=== PATIENT | male | born 1965 | race African-American/Black ===

== ENCOUNTER 2016-10-07 16:56 | Emergency (ER) | payer SELFPAY ==
[~2016-10-07] VITALS: Ht 167.6 cm; Wt 83.0 kg
[2016-10-07 16:59] VITALS: BP 160/80
== END 2016-10-07 22:25 | disposition left against medical advice (07) ==
LOC: ER 22:21
DX: R51 Headache (principal); Z53.21 Procedure and treatment not carried out due to patient leaving prior to being seen by health care provider

== ENCOUNTER 2016-10-09 13:47 | Emergency (ER) | payer SELFPAY ==
[~2016-10-09] VITALS: Ht 167.6 cm; Wt 82.0 kg
[2016-10-09 13:57] VITALS: BP 142/95
== END 2016-10-09 14:55 | disposition home or self-care (01) ==
LOC: ER 13:48
DX: R21 Rash and other nonspecific skin eruption (principal); I10 Essential (primary) hypertension; M19.90 Unspecified osteoarthritis, unspecified site; F12.10 Cannabis abuse, uncomplicated
CPT/HCPCS: 99282

== ENCOUNTER 2016-10-19 16:24 | Emergency (ER) | payer SELFPAY ==
[~2016-10-19] VITALS: Ht 167.6 cm; Wt 82.0 kg
[2016-10-19] MEDS ORDERED: ACETAMINOPHEN WITH CODEINE 300/30MG TABLET PO STA (16:42)
[2016-10-19 17:06] LABS: BASOPHILS % 0.9 % (0.0-2.0); EOSINOPHILS % 3.7 % (0.0-5.0); HEMATOCRIT. 39.7 % (42.0-52.0); HEMOGLOBIN. 13.6 g/dL (14.0-18.0); LYMPHOCYTES % 37.9 % (20.0-50.0); MEAN CORPUSCULAR HEMOGLOBIN 30.8 pg (28.0-32.0); MEAN CORPUSCULAR VOLUME 89.6 fL (80.0-94.0); MEAN PLATELET VOLUME 8.4 fl (7.4-10.4); MONOCYTES % 11.2 % (2.0-8.0); NEUTROPHILS % 46.3 % (40.0-76.0); PLATELET 249 x1000/uL (130-400); RED BLOOD CELL COUNT 4.43 mill/uL (4.7-6.1); RED CELL DISTRIBUTION WIDTH 14.1 % (11.6-14.6)
[2016-10-19 17:09] LABS: CHLORIDE 107 mEq/L (98-107)
[2016-10-19 17:10] LABS: PROTHROMBIN TIME 10.1 sec
[2016-10-19 17:13] LABS: CARBON DIOXIDE 26 mEq/L (21-32)
[2016-10-19 19:01] VITALS: BP 144/92
== END 2016-10-19 19:04 | disposition home or self-care (01) ==
LOC: ER 18:35
DX: I10 Essential (primary) hypertension (principal); R51 Headache; M19.90 Unspecified osteoarthritis, unspecified site
CPT/HCPCS: 36415; 70450; 80053; 85025; 85610; 93005; 99285; Z7610

== ENCOUNTER 2017-07-19 10:07 | Emergency (ER) | payer SELFPAY ==
[~2017-07-19] VITALS: Ht 167.6 cm; Wt 81.0 kg
[2017-07-19 10:27] VITALS: BP 167/100
[2017-07-19] MEDS ORDERED: TETANUS, DIPHTHERIA, PERTUSSIS VAC/PF 0.5ML (>7YR OLD) IM ONE (12:00)
== END 2017-07-19 12:50 | disposition home or self-care (01) ==
LOC: ER 10:07
DX: L03.114 Cellulitis of left upper limb (principal); S69.92XA Unspecified injury of left wrist, hand and finger(s), initial encounter; X58.XXXA Exposure to other specified factors, initial encounter; Z23 Encounter for immunization; Y93.89 Activity, other specified; Y92.69 Other specified industrial and construction area as the place of occurrence of the external cause; Y99.0 Civilian activity done for income or pay; I10 Essential (primary) hypertension; F12.90 Cannabis use, unspecified, uncomplicated
CPT/HCPCS: 73130; 90471; 90715; 99283

== ENCOUNTER 2017-11-23 16:40 | Emergency (ER) | payer SELFPAY ==
[~2017-11-23] VITALS: Ht 167.6 cm; Wt 82.0 kg
[2017-11-23 17:27] VITALS: BP 169/116
[2017-11-23] MEDS ORDERED: SODIUM CHLORIDE 0.9% 1,000 ML IV ONE (17:52)
[2017-11-23 18:04] LABS: BASOPHILS % 0.8 % (0.0-2.0); EOSINOPHILS % 1.5 % (0.0-5.0); HEMATOCRIT. 42.7 % (42.0-52.0); HEMOGLOBIN. 14.4 g/dL (14.0-18.0); LYMPHOCYTES % 34.1 % (20.0-50.0); MEAN CORPUSCULAR HEMOGLOBIN 30.9 pg (28.0-32.0); MEAN CORPUSCULAR VOLUME 91.7 fL (80.0-94.0); MONOCYTES % 9.4 % (2.0-8.0); NEUTROPHILS % 54.2 % (40.0-76.0); PLATELET 277 x1000/uL (130-400); RED BLOOD CELL COUNT 4.66 mill/uL (4.7-6.1); RED CELL DISTRIBUTION WIDTH 13.4 % (11.6-14.6)
[2017-11-23 18:10] LABS: CHLORIDE 105 mEq/L (98-107)
[2017-11-23 18:11] LABS: PROTHROMBIN TIME 10.5 sec (9.4-11.6)
[2017-11-23] MEDS ORDERED: POTASSIUM CHLORIDE 20MEQ TABLET SR PO NR (20:00)
== END 2017-11-23 21:25 | disposition home or self-care (01) ==
LOC: ER 16:40
DX: T22.212A Burn of second degree of left forearm, initial encounter (principal); T31.0 Burns involving less than 10% of body surface; R25.2 Cramp and spasm; R00.2 Palpitations; I44.0 Atrioventricular block, first degree; R03.0 Elevated blood-pressure reading, without diagnosis of hypertension; E87.6 Hypokalemia; F12.90 Cannabis use, unspecified, uncomplicated; X16.XXXA Contact with hot heating appliances, radiators and pipes, initial encounter; Y93.89 Activity, other specified; Y92.89 Other specified places as the place of occurrence of the external cause
CPT/HCPCS: 36415; 71045; 80053; 83880; 84484; 85025; 85610; 93005; 99285; J7030

== ENCOUNTER 2018-11-23 15:29 | Emergency (ER) | payer MEDICAID ==
[~2018-11-23] VITALS: Ht 167.6 cm; Wt 90.0 kg
[2018-11-23 18:04] LABS: EOSINOPHILS % 4.2 % (0.0-5.0); HEMATOCRIT. 43.5 % (42.0-52.0); HEMOGLOBIN. 14.9 g/dL (14.0-18.0); LYMPHOCYTES % 42.5 % (20.0-50.0); MEAN CORPUSCULAR HEMOGLOBIN 31.5 pg (28.0-32.0); MEAN CORPUSCULAR VOLUME 92.1 fL (80.0-94.0); MEAN PLATELET VOLUME 9.3 fl (7.4-10.4); MONOCYTES % 9.6 % (2.0-8.0); NEUTROPHILS % 42.7 % (40.0-76.0); PLATELET 270 x1000/uL (130-400); RED BLOOD CELL COUNT 4.72 mill/uL (4.7-6.1); RED CELL DISTRIBUTION WIDTH 13.3 % (11.6-14.6)
[2018-11-23 18:10] LABS: CHLORIDE 110 mEq/L (98-107)
[2018-11-23] MEDS ORDERED: AMLODIPINE 2.5MG TABLET PO ONE (20:00)
[2018-11-23 20:30] VITALS: BP 168/120
== END 2018-11-23 20:34 | disposition home or self-care (01) ==
LOC: ER 15:29
DX: R07.89 Other chest pain (principal); I16.1 Hypertensive emergency; I10 Essential (primary) hypertension; F12.10 Cannabis abuse, uncomplicated
CPT/HCPCS: 36415; 71045; 83880; 84484; 93005; 99284

== ENCOUNTER 2019-02-07 04:56 | Inpatient (IN) | payer SELFPAY ==
[~2019-02-07] VITALS: Ht 167.6 cm; Wt 81.6 kg
[2019-02-07] MEDS ORDERED: ALBUTEROL (0.083%) 2.5MG/3ML NEB HHN ONE (05:45)
[2019-02-07 06:45] LABS: BASOPHILS % 0.9 % (0.0-2.0); EOSINOPHILS % 3.7 % (0.0-5.0); LYMPHOCYTES % 22.5 % (20.0-50.0); MEAN CORPUSCULAR HEMOGLOBIN 31.6 pg (28.0-32.0); MEAN CORPUSCULAR VOLUME 92.8 fL (80.0-94.0); MEAN PLATELET VOLUME 9.6 fl (7.4-10.4); MONOCYTES % 9.7 % (2.0-8.0); NEUTROPHILS % 63.2 % (40.0-76.0); PLATELET 254 x1000/uL (130-400); RED BLOOD CELL COUNT 5.07 mill/uL (4.7-6.1); RED CELL DISTRIBUTION WIDTH 13.4 % (11.6-14.6)
[2019-02-07 07:21] LABS: CHLORIDE 108 mEq/L (98-107)
[2019-02-07] MEDS ORDERED: FUROSEMIDE 40MG/4ML VIAL IVP ONE (08:15)
[2019-02-07] MEDS ORDERED: ENALAPRIL 2.5MG/2ML VIAL 2ML IV ONE (08:15)
[2019-02-07] MEDS ORDERED: KETOROLAC 15MG/ML VIAL IV PRN (10:00)
[2019-02-07] MEDS ORDERED: CLONIDINE 0.1MG TABLET PO PRN (10:00)
[2019-02-07] MEDS ORDERED: LORAZEPAM 0.5MG TABLET PO PRN (10:00)
[2019-02-07] MEDS ORDERED: GUAIFENESIN 200MG/10ML SUGAR FREE UDC PO PRN (10:00)
[2019-02-07] MEDS ORDERED: ONDANSETRON HCL 4MG/2ML INJ IV PRN (10:00)
[2019-02-07] MEDS ORDERED: IPRATROPIUM/ALBUTEROL 0.5-3(2.5)MG/3ML NEB HHN PRN (10:00)
[2019-02-07] MEDS ORDERED: DOCUSATE SODIUM 100MG CAPSULE PO PRN (10:00)
[2019-02-07] MEDS ORDERED: DIPHENHYDRAMINE 50MG/ML VIAL IV PRN (10:00)
[2019-02-07] MEDS ORDERED: ACETAMINOPHEN 325MG TABLET PO PRN (10:00)
[2019-02-07] MEDS ORDERED: MAGNESIUM/ALUMINUM HYDROXIDE/SIMETHICONE 30ML UDC PO PRN (10:00)
[2019-02-07] MEDS ORDERED: NITROGLYCERIN 0.4MG TABLET SL SL PRN (10:00)
[2019-02-07] MEDS ORDERED: LISI-604 MT (10:11)
[2019-02-07 10:21] LABS: ETHANOL BLOOD < 10 mg/dL
[2019-02-07 10:22] LABS: LDL CHOLESTEROL 99 mg/dL (5-100)
[2019-02-07 10:23] LABS: HDL CHOLESTEROL 90 mg/dL (40-59)
[2019-02-07 11:00] VITALS: BP 149/97
[2019-02-07 12:00] VITALS: BP 149/97
[2019-02-07] MEDS ORDERED: ENOXAPARIN 40MG/0.4ML SYR SUBCUT SCH (12:00)
[2019-02-07] MEDS: AMLODIPINE 10MG TABLET PO SCH (13:19)
[2019-02-07 14:29] LABS: *AMPHETAMINES SCREEN URINE NEGATIVE (NEGATIVE)
[2019-02-07 14:30] LABS: *BARBITURATES SCREEN URINE NEGATIVE (NEGATIVE); *BENZODIAZEPINES SCREEN URINE NEGATIVE (NEGATIVE); *COCAINE SCREEN URINE NEGATIVE (NEGATIVE); METHADONE URINE SCREEN NEGATIVE (NEGATIVE); OPIATES URINE SCREEN NEGATIVE (NEGATIVE); PHENCYCLIDINE URINE SCREEN NEGATIVE (NEGATIVE)
[2019-02-07 14:31] LABS: CANNABINOID URINE SCREEN PRESUMTIVE POSITIVE (NEGATIVE)
[2019-02-07 16:00] VITALS: BP 144/96
[2019-02-07 16:14] LABS: CREATINE KINASE MB FRACTION 3.2 ng/mL (0.5-3.6)
[2019-02-07 20:00] VITALS: BP 153/91
[2019-02-07] MEDS ORDERED: ZOLPIDEM TARTRATE 5MG TABLET PO PRN (21:00)
[2019-02-07] MEDS: FAMOTIDINE 20MG TABLET PO SCH (21:39)
[2019-02-08] VITALS: BP 148/85
[2019-02-08 00:20] LABS: CREATINE KINASE MB FRACTION 2.4 ng/mL (0.5-3.6)
[2019-02-08 04:00] VITALS: BP 158/82
[2019-02-08 08:00] VITALS: BP 153/102
[2019-02-08] MEDS: FAMOTIDINE 20MG TABLET PO SCH (08:20)
[2019-02-08] MEDS ORDERED: ASPIRIN 325MG EC TABLET PO SCH (09:00)
[2019-02-08] MEDS: AMLODIPINE 10MG TABLET PO SCH (09:24)
[2019-02-08] MEDS ORDERED: LISI-604 MT (10:13)
[2019-02-08 10:14] VITALS: BP 153/103
[2019-02-08] MEDS ORDERED: AMLO10TA4 MT (10:14)
== END 2019-02-08 11:47 | disposition home or self-care (01) | DRG 203 ==
LOC: ER 04:56 → 7WST 08:34 → ENRESERV 09:55
PROVIDERS: ADMIT Internal Medicine; ATTEND Internal Medicine
DX: R07.89 Other chest pain (principal); I11.0 Hypertensive heart disease with heart failure; I50.9 Heart failure, unspecified; F12.10 Cannabis abuse, uncomplicated; Z91.14 Patient's other noncompliance with medication regimen
CPT/HCPCS: 36415; 71045; 80061; 80305; 80320; 82550; 82553; 83036; 83880; 84484; 93005; 93970; 94640; 99285; J1650; J1940; J3490; J7611; G0480

== ENCOUNTER 2019-07-21 13:19 | Inpatient (IN) | payer SELFPAY ==
[~2019-07-21] VITALS: Ht 167.6 cm; Wt 80.7 kg
[~2019-07-21 13:19] MED LIST: AMLO10TA4 MT; LISI-604 MT
[2019-07-21] MEDS ORDERED: NITROGLYCERIN OINT 1GM/INCH UDPKT TD ONE (13:45)
[2019-07-21] MEDS ORDERED: ASPIRIN 81MG TABLET PO ONE (13:45)
[2019-07-21 14:14] LABS: BASOPHILS % 0.7 % (0.0-2.0); EOSINOPHILS % 3.6 % (0.0-5.0); HEMATOCRIT. 46.2 % (42.0-52.0); LYMPHOCYTES % 33.3 % (20.0-50.0); MEAN CORPUSCULAR HEMOGLOBIN 32.3 pg (28.0-32.0); MEAN PLATELET VOLUME 9.7 fl (7.4-10.4); MONOCYTES % 12.9 % (2.0-8.0); NEUTROPHILS % 49.5 % (40.0-76.0); PLATELET 271 x1000/uL (130-400); RED BLOOD CELL COUNT 4.96 mill/uL (4.7-6.1); RED CELL DISTRIBUTION WIDTH 13.3 % (11.6-14.6)
[2019-07-21 14:19] LABS: CHLORIDE 108 mEq/L (98-107)
[2019-07-21 14:24] LABS: D-DIMER 2.15 mg/L FEU (<0.50); PROTHROMBIN TIME 10.4 sec (9.6-11.0)
[2019-07-21] MEDS ORDERED: IOHEXOL-350 100 ML BOTTLE ONE (15:16)
[2019-07-21] MEDS ORDERED: GUAIFENESIN 200MG/10ML SUGAR FREE UDC PO PRN (16:30)
[2019-07-21] MEDS ORDERED: LORAZEPAM 0.5MG TABLET PO PRN (16:30)
[2019-07-21] MEDS ORDERED: ACETAMINOPHEN 325MG TABLET PO PRN ×2 (16:30)
[2019-07-21] MEDS ORDERED: NITROGLYCERIN 0.4MG TABLET SL SL PRN (16:30)
[2019-07-21] MEDS ORDERED: DOCUSATE SODIUM 100MG CAPSULE PO PRN (16:30)
[2019-07-21] MEDS ORDERED: KETOROLAC 15MG/ML VIAL IV PRN (16:30)
[2019-07-21] MEDS ORDERED: MAGNESIUM/ALUMINUM HYDROXIDE/SIMETHICONE 30ML UDC PO PRN (16:30)
[2019-07-21] MEDS ORDERED: ZOLPIDEM TARTRATE 5MG TABLET PO PRN (16:30)
[2019-07-21] MEDS ORDERED: IPRATROPIUM/ALBUTEROL 0.5-3(2.5)MG/3ML NEB NEB PRN (16:30)
[2019-07-21] MEDS ORDERED: ONDANSETRON HCL 4MG/2ML INJ IV PRN (16:30)
[2019-07-21] MEDS: CLONIDINE 0.1MG TABLET PO PRN (16:47)
[2019-07-21] MEDS ORDERED: ENOXAPARIN 40MG/0.4ML SYR SUBCUT SCH (17:00)
[2019-07-21] MEDS: FAMOTIDINE 20MG TABLET PO SCH (21:43)
[2019-07-21 23:31] LABS: CREATINE KINASE MB FRACTION 1.9 ng/mL (0.5-3.6)
[2019-07-22 07:05] VITALS: BP 162/119
[2019-07-22] MEDS: CLONIDINE 0.1MG TABLET PO PRN ×2 (07:53→14:00)
[2019-07-22 08:00] VITALS: BP 160/122
[2019-07-22 08:01] VITALS: BP 160/122
[2019-07-22] MEDS ORDERED: AMLODIPINE 10MG TABLET PO SCH (09:00)
[2019-07-22] MEDS ORDERED: ASPIRIN 325MG EC TABLET PO SCH (09:00)
[2019-07-22] MEDS ORDERED: ATENOLOL 50 MG TABLET PO SCH (09:00)
[2019-07-22 09:31] LABS: CREATINE KINASE MB FRACTION 1.9 ng/mL (0.5-3.6)
[2019-07-22] MEDS: FAMOTIDINE 20MG TABLET PO SCH (10:49)
[2019-07-22 12:00] VITALS: BP 146/102
[2019-07-22] MEDS ORDERED: INFLUENZA VIRUS VACCINE(AFLURIA) 0.5ML SYR IM ONE (12:00)
[2019-07-22 12:34] VITALS: BP_SYST 142; BP_SYST 149; BP_DIAS 101; BP_DIAS 102
== END 2019-07-22 15:55 | disposition home or self-care (01) | DRG 203 ==
LOC: ER 13:27 → 7WST 16:04 → EDBEDREQ 16:18 → EDBEDREQTM 16:18 → EDBEDREQ 16:19 → ENRESERV 07-22 06:00
PROVIDERS: ADMIT Internal Medicine; ATTEND Internal Medicine
DX: R07.89 Other chest pain (principal); F12.10 Cannabis abuse, uncomplicated; F17.210 Nicotine dependence, cigarettes, uncomplicated; M17.0 Bilateral primary osteoarthritis of knee; Z79.82 Long term (current) use of aspirin; Z79.899 Other long term (current) drug therapy; Z91.11 Patient's noncompliance with dietary regimen; Z91.14 Patient's other noncompliance with medication regimen; Z91.19 Patient's noncompliance with other medical treatment and regimen
CPT/HCPCS: 36415; 71045; 71275; 80053; 80061; 82550; 82553; 83880; 84484; 85025; 85379; 90686; 93005; 96372; 99285; J1650; Q9967

== ENCOUNTER 2020-04-06 11:15 | Emergency (ER) | payer MEDICAID ==
[~2020-04-06] VITALS: Ht 167.6 cm; Wt 84.0 kg
[~2020-04-06 11:15] MED LIST changes: -LISI-604 MT
[2020-04-06 11:59] LABS: BASOPHILS % 1.3 % (0.0-2.0); EOSINOPHILS % 4.3 % (0.0-5.0); HEMATOCRIT. 43.9 % (42.0-52.0); HEMOGLOBIN. 14.9 g/dL (14.0-18.0); LYMPHOCYTES % 36.3 % (20.0-50.0); MEAN CORPUSCULAR HEMOGLOBIN 31.7 pg (28.0-32.0); MEAN PLATELET VOLUME 9.6 fl (7.4-10.4); MONOCYTES % 12.3 % (2.0-8.0); NEUTROPHILS % 45.8 % (40.0-76.0); PLATELET 241 x1000/uL (130-400); RED BLOOD CELL COUNT 4.72 mill/uL (4.7-6.1)
[2020-04-06 12:04] LABS: CHLORIDE 106 mEq/L (98-107)
[2020-04-06 13:24] VITALS: BP 134/80
== END 2020-04-06 13:25 | disposition home or self-care (01) ==
LOC: ER 11:50
DX: R07.89 Other chest pain (principal); I10 Essential (primary) hypertension; F12.10 Cannabis abuse, uncomplicated
CPT/HCPCS: 36415; 71045; 80053; 84484; 85025; 93005; 99285

== ENCOUNTER 2020-08-02 08:59 | Inpatient (IN) | payer MEDICAID ==
[~2020-08-02] VITALS: Ht 167.6 cm; Wt 78.5 kg
[2020-08-02 09:39] LABS: HEMOGLOBIN. 15.5 g/dL (14.0-18.0); MEAN CORPUSCULAR HEMOGLOBIN 31.3 pg (28.0-32.0); MEAN CORPUSCULAR VOLUME 92.9 fL (80.0-94.0); RED BLOOD CELL COUNT 4.95 mill/uL (4.7-6.1); RED CELL DISTRIBUTION WIDTH 13.7 % (11.6-14.6)
[2020-08-02 09:45] LABS: CHLORIDE 106 mEq/L (98-107)
[2020-08-02] MEDS ORDERED: ASPIRIN 81MG TABLET PO ONE (09:45)
[2020-08-02 10:10] LABS: PLATELET 241 x1000/uL (130-400)
[2020-08-02 10:12] LABS: PLATELET ESTIMATE NORMAL
[2020-08-02] MEDS ORDERED: FUROSEMIDE 20MG/2ML VIAL IVP SCH (11:30)
[2020-08-02] MEDS ORDERED: NITROGLYCERIN 0.4MG TABLET SL SL ONE (12:00)
[2020-08-02] MEDS ORDERED: ONDANSETRON HCL 4MG/2ML INJ IV PRN ×2 (15:30→18:00)
[2020-08-02] MEDS ORDERED: ACETAMINOPHEN 325MG TABLET PO PRN ×2 (15:30→18:00)
[2020-08-02] MEDS: AMLODIPINE 10MG TABLET PO SCH (15:42)
[2020-08-02 16:38] LABS: *AMPHETAMINES SCREEN URINE NEGATIVE (NEGATIVE); *BARBITURATES SCREEN URINE NEGATIVE (NEGATIVE); *BENZODIAZEPINES SCREEN URINE NEGATIVE (NEGATIVE)
[2020-08-02 16:39] LABS: *COCAINE SCREEN URINE NEGATIVE (NEGATIVE); CANNABINOID URINE SCREEN PRESUMTIVE POSITIVE (NEGATIVE); METHADONE URINE SCREEN NEGATIVE (NEGATIVE); OPIATES URINE SCREEN NEGATIVE (NEGATIVE); PHENCYCLIDINE URINE SCREEN NEGATIVE (NEGATIVE)
[2020-08-02 17:25] VITALS: BP 176/113
[2020-08-02 17:30] VITALS: BP 176/113
[2020-08-02] MEDS ORDERED: MAGNESIUM/ALUMINUM HYDROXIDE/SIMETHICONE 30ML UDC PO PRN (18:00)
[2020-08-02] MEDS ORDERED: HYDRALAZINE 20MG/ML VIAL IV PRN (18:00)
[2020-08-02] MEDS ORDERED: DIPHENHYDRAMINE 50MG/ML VIAL IV PRN (18:00)
[2020-08-02] MEDS ORDERED: ZOLPIDEM TARTRATE 5MG TABLET PO PRN (18:00)
[2020-08-02] MEDS ORDERED: CLONIDINE 0.1MG TABLET PO PRN ×2 (18:00→18:15)
[2020-08-02] MEDS ORDERED: INFLUENZA VACCINE 05/PF 0.5 ML VIAL IM ONE (19:45)
[2020-08-02 20:00] VITALS: BP 156/100
[2020-08-02] MEDS: LOSARTAN POTASSIUM 100 MG TABLET PO SCH (21:32)
[2020-08-02] MEDS: SODIUM CHLORIDE 0.9% INJ 3ML FLUSH IVF SCH (21:33)
[2020-08-03] VITALS (27 sets, daily range): BP systolic 109–159; BP diastolic 44–114
[2020-08-03] MEDS: SODIUM CHLORIDE 0.9% INJ 3ML FLUSH IVF SCH ×2 (05:38→22:00)
[2020-08-03 07:06] LABS: BASOPHILS % 0.8 % (0.0-2.0); EOSINOPHILS % 4.1 % (0.0-5.0); HEMATOCRIT. 50.5 % (42.0-52.0); LYMPHOCYTES % 36.9 % (20.0-50.0); MONOCYTES % 13.2 % (2.0-8.0); PLATELET 269 x1000/uL (130-400); RED BLOOD CELL COUNT 5.49 mill/uL (4.7-6.1); RED CELL DISTRIBUTION WIDTH 13.4 % (11.6-14.6)
[2020-08-03 07:18] LABS: CHLORIDE 105 mEq/L (98-107)
[2020-08-03 07:34] LABS: LDL CHOLESTEROL 131 mg/dL (5-100)
[2020-08-03 07:35] LABS: CREATINE KINASE 116 IU/L (39-308); CREATINE KINASE MB FRACTION 1.9 ng/mL (0.5-3.6)
[2020-08-03 07:36] LABS: HDL CHOLESTEROL 98 mg/dL (40-59)
[2020-08-03] MEDS: AMLODIPINE 10MG TABLET PO SCH (10:06)
[2020-08-03] MEDS: ASPIRIN 81MG TABLET PO SCH (10:06)
[2020-08-03] MEDS: LOSARTAN POTASSIUM 100 MG TABLET PO SCH (10:06)
[2020-08-03] MEDS ORDERED: REGADENOSON 0.4 MG/5 ML IV SCH (11:15)
[2020-08-03] MEDS: ACETAMINOPHEN 325MG TABLET PO PRN (13:12)
[2020-08-03] MEDS ORDERED: KETOROLAC 30MG/ML VIAL IV SCH (13:30)
[2020-08-03 16:16] LABS: BASOPHILS % 0.5 % (0.0-2.0); EOSINOPHILS % 0.9 % (0.0-5.0); HEMATOCRIT. 47.2 % (42.0-52.0); HEMOGLOBIN. 15.7 g/dL (14.0-18.0); LYMPHOCYTES % 18.4 % (20.0-50.0); MEAN CORPUSCULAR HEMOGLOBIN 30.8 pg (28.0-32.0); MEAN CORPUSCULAR VOLUME 92.6 fL (80.0-94.0); MEAN PLATELET VOLUME 9.6 fl (7.4-10.4); MONOCYTES % 10.9 % (2.0-8.0); NEUTROPHILS % 69.3 % (40.0-76.0); PLATELET 258 x1000/uL (130-400); RED BLOOD CELL COUNT 5.09 mill/uL (4.7-6.1); RED CELL DISTRIBUTION WIDTH 13.5 % (11.6-14.6)
[2020-08-03] MEDS ORDERED: IOHEXOL-350 100 ML BOTTLE ONE ×2 (16:18→23:31)
[2020-08-03 16:23] LABS: PARTIAL THROMBOPLASTIN TIME 29.7 sec (23.4-31.0); PROTHROMBIN TIME 11.2 sec (9.6-11.0)
[2020-08-03 17:29] LABS: CHLORIDE 101 mEq/L (98-107)
[2020-08-03] MEDS ORDERED: [UNRECOGNIZED DRUG - REMARK] XX SCH (18:45)
[2020-08-03] MEDS ORDERED: ALTEPLASE 50MG/VIAL IV NR (19:00)
[2020-08-03] MEDS ORDERED: *NO ASPIRIN X 24 HOURS XX SCH (19:15)
[2020-08-03] MEDS ORDERED: WATER FOR INJECTION STERILE IV NR (19:30)
[2020-08-03] MEDS ORDERED: ALTEPLASE IV NR (19:30)
[2020-08-04] VITALS (33 sets, daily range): BP systolic 106–168; BP diastolic 30–106
[2020-08-04 06:23] LABS: BASOPHILS % 0.4 % (0.0-2.0); EOSINOPHILS % 0.8 % (0.0-5.0); HEMATOCRIT. 48.1 % (42.0-52.0); HEMOGLOBIN. 15.8 g/dL (14.0-18.0); LYMPHOCYTES % 19.3 % (20.0-50.0); MEAN CORPUSCULAR HEMOGLOBIN 30.7 pg (28.0-32.0); MEAN CORPUSCULAR VOLUME 93.3 fL (80.0-94.0); MEAN PLATELET VOLUME 9.6 fl (7.4-10.4); MONOCYTES % 11.1 % (2.0-8.0); NEUTROPHILS % 68.4 % (40.0-76.0); PLATELET 291 x1000/uL (130-400); RED BLOOD CELL COUNT 5.16 mill/uL (4.7-6.1); RED CELL DISTRIBUTION WIDTH 13.5 % (11.6-14.6)
[2020-08-04 06:36] LABS: CHLORIDE 103 mEq/L (98-107)
[2020-08-04] MEDS: SODIUM CHLORIDE 0.9% INJ 3ML FLUSH IVF SCH ×3 (06:45→21:06)
[2020-08-04] MEDS: AMLODIPINE 5MG TABLET PO SCH (08:03)
[2020-08-04] MEDS: ACETAMINOPHEN 325MG TABLET PO PRN (08:07)
[2020-08-04] MEDS ORDERED: LOSARTAN POTASSIUM 25 MG TABLET PO SCH (09:00)
[2020-08-04] MEDS ORDERED: MORPHINE SULFATE 4 MG/ML CPJ (NOT FOR IM USE) IV PRN (12:00)
[2020-08-04] MEDS ORDERED: KETOROLAC 30MG/ML VIAL IV NR (12:00)
[2020-08-04] MEDS ORDERED: HYDROCODONE/ACETAMINOPHEN 5/325MG TABLET PO PRN (12:00)
[2020-08-04] MEDS: CARVEDILOL 3.125 MG TABLET PO SCH ×2 (16:03→21:05)
[2020-08-04] MEDS ORDERED: ATORVASTATIN CALCIUM 20MG TABLET PO SCH (21:00)
[2020-08-04] MEDS: LOSARTAN POTASSIUM 25 MG TABLET PO SCH (21:05)
[2020-08-05] VITALS (11 sets, daily range): BP systolic 111–152; BP diastolic 58–94
[2020-08-05] MEDS: SODIUM CHLORIDE 0.9% INJ 3ML FLUSH IVF SCH (05:11)
[2020-08-05] MEDS: CARVEDILOL 3.125 MG TABLET PO SCH (05:11)
[2020-08-05 05:56] LABS: CHLORIDE 105 mEq/L (98-107)
[2020-08-05 05:59] LABS: HEMATOCRIT. 47.3 % (42.0-52.0); HEMOGLOBIN. 15.9 g/dL (14.0-18.0); MEAN CORPUSCULAR HEMOGLOBIN 31.2 pg (28.0-32.0); MEAN CORPUSCULAR VOLUME 92.8 fL (80.0-94.0); MEAN PLATELET VOLUME 9.5 fl (7.4-10.4); PLATELET 252 x1000/uL (130-400); RED CELL DISTRIBUTION WIDTH 13.7 % (11.6-14.6)
[2020-08-05 07:56] LABS: PLATELET ESTIMATE NORMAL
[2020-08-05] MEDS: AMLODIPINE 5MG TABLET PO SCH (08:28)
[2020-08-05] MEDS: ASPIRIN 81MG TABLET PO SCH (08:28)
[2020-08-05] MEDS: LOSARTAN POTASSIUM 25 MG TABLET PO SCH (08:28)
[2020-08-05] MEDS ORDERED: CLOPIDOGREL 75MG TABLET PO SCH (18:00)
[2020-08-06] MEDS ORDERED: AMLO10TA80 MT (11:18)
== END 2020-08-05 11:00 | disposition left against medical advice (07) | DRG 45 ==
LOC: ER 09:17 → EDBEDREQ 12:45 → ENRESERV 15:29 → 8WST 17:14 → CVICU 08-03 18:13
PROVIDERS: ADMIT Internal Medicine; ATTEND Internal Medicine
PROC: 4A00X4Z Measurement of Central Nervous Electrical Activity, External Approach (ICD-10-PCS; principal; 2020-08-02)
PROC: 3E03317 Introduction of Other Thrombolytic into Peripheral Vein, Percutaneous Approach (ICD-10-PCS; 2020-08-03)
DX: I63.9 Cerebral infarction, unspecified (principal); M94.0 Chondrocostal junction syndrome [Tietze]; I50.23 Acute on chronic systolic (congestive) heart failure; I11.0 Hypertensive heart disease with heart failure; E78.5 Hyperlipidemia, unspecified; F12.90 Cannabis use, unspecified, uncomplicated; I16.0 Hypertensive urgency; F10.10 Alcohol abuse, uncomplicated; Y90.9 Presence of alcohol in blood, level not specified; Z53.29 Procedure and treatment not carried out because of patient's decision for other reasons; E78.00 Pure hypercholesterolemia, unspecified; Z79.82 Long term (current) use of aspirin; Z82.49 Family history of ischemic heart disease and other diseases of the circulatory system; Z83.3 Family history of diabetes mellitus; Z79.899 Other long term (current) drug therapy
CPT/HCPCS: 36415; 70496; 70551; 71045; 80048; 80053; 80061; 80305; 82550; 82553; 82962; 83735; 83880; 84443; 84484; 85025; 85379; 92523; 93005; 93306; 93308; 93970; 95816; 99291; J0360; J1200; J1885; J1940; J2270; J2405; J2997; Q9967

== ENCOUNTER 2020-08-06 10:55 | Emergency (ER) | payer MEDICAID ==
[~2020-08-06] VITALS: Ht 167.6 cm; Wt 82.0 kg
[2020-08-06 11:01] VITALS: BP 159/119
[2020-08-06] MEDS ORDERED: AMLO10TA80 MT (11:18)
== END 2020-08-06 11:38 | disposition home or self-care (01) ==
LOC: ER 10:55
DX: Z04.89 Encounter for examination and observation for other specified reasons (principal); I10 Essential (primary) hypertension
CPT/HCPCS: 99281

== ENCOUNTER 2020-12-17 17:26 | Inpatient (IN) | payer MEDICAID, OTHER ==
[~2020-12-17] VITALS: Ht 167.6 cm; Wt 80.7 kg
[~2020-12-17 17:26] MED LIST changes: +AMLO10TA80 MT
[2020-12-17] MEDS ORDERED: ASPIRIN 81MG TABLET PO ONE (18:15)
[2020-12-17 18:46] LABS: BASOPHILS % 1.1 % (0.0-2.0); EOSINOPHILS % 2.2 % (0.0-5.0); HEMOGLOBIN. 14.3 g/dL (14.0-18.0); LYMPHOCYTES % 48.2 % (20.0-50.0); MEAN CORPUSCULAR HEMOGLOBIN 31.7 pg (28.0-32.0); MEAN CORPUSCULAR VOLUME 90.8 fL (80.0-94.0); MEAN PLATELET VOLUME 9.2 fl (7.4-10.4); MONOCYTES % 11.6 % (2.0-8.0); NEUTROPHILS % 36.9 % (40.0-76.0); PLATELET 278 x1000/uL (130-400); RED BLOOD CELL COUNT 4.52 mill/uL (4.7-6.1); RED CELL DISTRIBUTION WIDTH 13.2 % (11.6-14.6)
[2020-12-17 19:08] LABS: CHLORIDE 107 mEq/L (98-107)
[2020-12-17] MEDS ORDERED: HYDROMORPHONE HCL/PF 2MG/ML CPJ IV PRN (23:45)
[2020-12-17] MEDS ORDERED: ONDANSETRON HCL 4MG/2ML INJ IV PRN (23:45)
[2020-12-17] MEDS ORDERED: MAGNESIUM/ALUMINUM HYDROXIDE/SIMETHICONE 30ML UDC PO PRN (23:45)
[2020-12-17] MEDS ORDERED: ACETAMINOPHEN 325MG TABLET PO PRN (23:45)
[2020-12-17] MEDS ORDERED: CLONIDINE 0.1MG TABLET PO PRN (23:45)
[2020-12-17] MEDS ORDERED: NALOXONE HCL 0.4MG/ML VIAL IV PRN (23:45)
[2020-12-17] MEDS ORDERED: HYDROCODONE/ACETAMINOPHEN 5/325MG TABLET PO PRN (23:45)
[2020-12-18] MEDS: AMLODIPINE 10MG TABLET PO SCH ×2 (00:25→09:40)
[2020-12-18 05:14] LABS: BASOPHILS % 0.6 % (0.0-2.0); EOSINOPHILS % 2.8 % (0.0-5.0); HEMATOCRIT. 43.5 % (42.0-52.0); HEMOGLOBIN. 14.8 g/dL (14.0-18.0); LYMPHOCYTES % 48.1 % (20.0-50.0); MEAN CORPUSCULAR HEMOGLOBIN 31.4 pg (28.0-32.0); MEAN CORPUSCULAR VOLUME 92.1 fL (80.0-94.0); MEAN PLATELET VOLUME 9.2 fl (7.4-10.4); MONOCYTES % 13.9 % (2.0-8.0); NEUTROPHILS % 34.6 % (40.0-76.0); PLATELET 267 x1000/uL (130-400); RED BLOOD CELL COUNT 4.72 mill/uL (4.7-6.1); RED CELL DISTRIBUTION WIDTH 13.4 % (11.6-14.6)
[2020-12-18 05:18] LABS: CHLORIDE 108 mEq/L (98-107)
[2020-12-18 05:27] LABS: LDL CHOLESTEROL 95 mg/dL (5-100)
[2020-12-18 05:29] LABS: HDL CHOLESTEROL 81 mg/dL (40-59)
[2020-12-18] MEDS ORDERED: LISINOPRIL 20MG TABLET PO SCH (09:00)
[2020-12-18] MEDS: ASPIRIN 81MG EC TABLET PO SCH (09:39)
[2020-12-18] MEDS ORDERED: REGADENOSON 0.4 MG/5 ML IV NR (14:00)
[2020-12-18] MEDS: CLOPIDOGREL 75MG TABLET PO SCH (14:45)
[2020-12-18] MEDS: HYDRALAZINE HCL 10MG TABLET PO SCH ×2 (14:48→21:23)
[2020-12-18 17:03] VITALS: BP 139/97
[2020-12-18] MEDS ORDERED: ASPI-1497 PO (17:44)
[2020-12-18 20:00] VITALS: BP 142/102
[2020-12-18] MEDS ORDERED: ATORVASTATIN CALCIUM 40MG TABLET PO SCH (21:00)
[2020-12-18 23:56] LABS: CLARITY URINE CLEAR (CLEAR); COLOR URINE YELLOW (YELLOW); KETONES URINE NEGATIVE (NEGATIVE); LEUKOCYTE ESTERASE URINE NEGATIVE (NEGATIVE); NITRITE URINE NEGATIVE (NEGATIVE); OCCULT BLOOD URINE NEGATIVE (NEGATIVE); PH URINE 5.5 (4.5-8.0); PROTEIN URINE NEGATIVE (NEGATIVE); SPECIFIC GRAVITY URINE 1.015 (1.005-1.030); UROBILINOGEN URINE 0.2 E.U./dL (0.2-1.0)
[2020-12-19] VITALS: BP 141/94
[2020-12-19 00:10] LABS: *AMPHETAMINES SCREEN URINE NEGATIVE (NEGATIVE); *BARBITURATES SCREEN URINE NEGATIVE (NEGATIVE); *BENZODIAZEPINES SCREEN URINE NEGATIVE (NEGATIVE); *COCAINE SCREEN URINE NEGATIVE (NEGATIVE)
[2020-12-19 00:11] LABS: CANNABINOID URINE SCREEN PRESUMTIVE POSITIVE (NEGATIVE); METHADONE URINE SCREEN NEGATIVE (NEGATIVE); OPIATES URINE SCREEN NEGATIVE (NEGATIVE); PHENCYCLIDINE URINE SCREEN NEGATIVE (NEGATIVE)
[2020-12-19 04:00] VITALS: BP 135/99
[2020-12-19] MEDS: HYDRALAZINE HCL 10MG TABLET PO SCH ×2 (05:02→14:04)
[2020-12-19 08:00] VITALS: BP 132/95
[2020-12-19] MEDS: AMLODIPINE 10MG TABLET PO SCH (08:46)
[2020-12-19] MEDS: ASPIRIN 81MG EC TABLET PO SCH (08:46)
[2020-12-19] MEDS: CLOPIDOGREL 75MG TABLET PO SCH (08:46)
[2020-12-19] MEDS ORDERED: LISINOPRIL 20MG TABLET PO SCH (09:00)
[2020-12-19 10:44] LABS: CHLORIDE 106 mEq/L (98-107)
[2020-12-19 11:06] LABS: BASOPHILS % 0.4 % (0.0-2.0); HEMOGLOBIN. 16.9 g/dL (14.0-18.0); LYMPHOCYTES % 41.2 % (20.0-50.0); MEAN CORPUSCULAR HEMOGLOBIN 31.6 pg (28.0-32.0); MEAN CORPUSCULAR VOLUME 92.3 fL (80.0-94.0); MEAN PLATELET VOLUME 9.3 fl (7.4-10.4); MONOCYTES % 12.6 % (2.0-8.0); NEUTROPHILS % 44.8 % (40.0-76.0); PLATELET 305 x1000/uL (130-400); RED BLOOD CELL COUNT 5.35 mill/uL (4.7-6.1); RED CELL DISTRIBUTION WIDTH 13.4 % (11.6-14.6)
[2020-12-19 11:08] LABS: HEMATOCRIT. 49.4 % (42.0-52.0)
[2020-12-19] MEDS ORDERED: REGADENOSON 0.4 MG/5 ML IV ONE (11:31)
[2020-12-19 12:41] VITALS: BP 129/87
[2020-12-19 13:16] VITALS: BP 129/87
[2020-12-19 16:00] VITALS: BP 138/91
== END 2020-12-19 16:22 | disposition home or self-care (01) | DRG 203 ==
LOC: ER 17:26 → MICUSO 22:29 → EDBEDREQ 22:32 → 7EST 12-18 15:31
PROVIDERS: ADMIT Hospitalist; ATTEND Hospitalist
DX: M94.0 Chondrocostal junction syndrome [Tietze] (principal); I50.23 Acute on chronic systolic (congestive) heart failure; I25.2 Old myocardial infarction; I11.0 Hypertensive heart disease with heart failure; E78.5 Hyperlipidemia, unspecified; F12.90 Cannabis use, unspecified, uncomplicated; I49.3 Ventricular premature depolarization; Z79.02 Long term (current) use of antithrombotics/antiplatelets; Z79.82 Long term (current) use of aspirin; Z86.73 Personal history of transient ischemic attack (TIA), and cerebral infarction without residual deficits; Z91.19 Patient's noncompliance with other medical treatment and regimen
CPT/HCPCS: 36415; 71045; 78452; 80048; 80053; 80061; 80305; 81003; 83880; 84484; 85025; 87426; 93005; 93017; 93306; 99285; A9500; J2785

== ENCOUNTER 2021-02-22 19:34 | Emergency (ER) | payer MEDICAID ==
[~2021-02-22] VITALS: Ht 167.6 cm; Wt 82.0 kg
[~2021-02-22 19:34] MED LIST changes: +ASPI-1497 PO
[2021-02-22] MEDS ORDERED: ACETAMINOPHEN 325MG TABLET PO STA (20:24)
[2021-02-22] MEDS ORDERED: VISCOUS LIDOCAINE 2% 15 ML UDC PO ONE (20:30)
[2021-02-22] MEDS ORDERED: MAGNESIUM/ALUMINUM HYDROXIDE/SIMETHICONE 30ML UDC PO ONE (20:30)
[2021-02-22 21:35] LABS: BASOPHILS % 1.2 % (0.0-2.0); EOSINOPHILS % 6.3 % (0.0-5.0); HEMATOCRIT. 43.2 % (42.0-52.0); MEAN CORPUSCULAR HEMOGLOBIN 31.4 pg (28.0-32.0); MEAN CORPUSCULAR VOLUME 90.2 fL (80.0-94.0); MEAN PLATELET VOLUME 8.7 fl (7.4-10.4); MONOCYTES % 11.2 % (2.0-8.0); NEUTROPHILS % 38.3 % (40.0-76.0); PLATELET 281 x1000/uL (130-400); RED BLOOD CELL COUNT 4.79 mill/uL (4.7-6.1); RED CELL DISTRIBUTION WIDTH 13.4 % (11.6-14.6)
[2021-02-22 21:48] LABS: CHLORIDE 107 mEq/L (98-107)
[2021-02-22 21:55] LABS: ETHANOL BLOOD < 10 mg/dL
[2021-02-22 23:30] VITALS: BP 163/91
[2021-02-23] MEDS ORDERED: MAG355OR21 MT (00:03)
[2021-02-23] MEDS ORDERED: FAMO20TA8 MT (00:03)
== END 2021-02-23 00:28 | disposition home or self-care (01) ==
LOC: ER 19:34
DX: R10.9 Unspecified abdominal pain (principal); R07.89 Other chest pain; R42 Dizziness and giddiness; I11.0 Hypertensive heart disease with heart failure; I50.9 Heart failure, unspecified; R06.00 Dyspnea, unspecified; I25.2 Old myocardial infarction; Z86.73 Personal history of transient ischemic attack (TIA), and cerebral infarction without residual deficits
CPT/HCPCS: 36415; 71045; 80053; 80320; 83605; 83880; 84484; 85025; 93005; 99285; G0480

== ENCOUNTER 2021-05-28 08:26 | Inpatient (IN) | payer MEDICAID ==
[~2021-05-28] VITALS: Ht 167.6 cm; Wt 80.7 kg
[~2021-05-28 08:26] MED LIST changes: +FAMO20TA8 MT; +MAG355OR21 MT
[2021-05-28] MEDS ORDERED: VISCOUS LIDOCAINE 2% 15 ML UDC MM ONE (08:45)
[2021-05-28] MEDS ORDERED: FAMOTIDINE 20MG/2ML VIAL IV ONE (08:45)
[2021-05-28] MEDS ORDERED: MAGNESIUM/ALUMINUM HYDROXIDE/SIMETHICONE 30ML UDC PO ONE (08:45)
[2021-05-28 10:15] LABS: BASOPHILS % 1.1 % (0.0-2.0); EOSINOPHILS % 1.2 % (0.0-5.0); HEMATOCRIT. 47.4 % (42.0-52.0); HEMOGLOBIN. 16.1 g/dL (14.0-18.0); MEAN CORPUSCULAR HEMOGLOBIN 31.5 pg (28.0-32.0); MEAN CORPUSCULAR VOLUME 92.5 fL (80.0-94.0); MEAN PLATELET VOLUME 9.6 fl (7.4-10.4); MONOCYTES % 12.9 % (2.0-8.0); NEUTROPHILS % 57.8 % (40.0-76.0); PLATELET 347 x1000/uL (130-400); RED BLOOD CELL COUNT 5.13 mill/uL (4.7-6.1); RED CELL DISTRIBUTION WIDTH 13.3 % (11.6-14.6)
[2021-05-28 10:22] LABS: CHLORIDE 110 mEq/L (98-107)
[2021-05-28 10:27] LABS: ETHANOL BLOOD < 10 mg/dL
[2021-05-28] MEDS ORDERED: FUROSEMIDE 40MG/4ML VIAL IVP ONE (11:00)
[2021-05-28] MEDS ORDERED: ASPIRIN 81MG TABLET PO ONE (11:00)
[2021-05-28] MEDS ORDERED: ONDANSETRON HCL 4MG/2ML INJ IV PRN (14:00)
[2021-05-28] MEDS ORDERED: IPRATROPIUM/ALBUTEROL 0.5-3(2.5)MG/3ML NEB NEB PRN (14:00)
[2021-05-28] MEDS ORDERED: CLONIDINE 0.1MG TABLET PO PRN (14:00)
[2021-05-28] MEDS ORDERED: NITROGLYCERIN 0.4MG TABLET SL SL PRN (14:00)
[2021-05-28] MEDS ORDERED: MAGNESIUM/ALUMINUM HYDROXIDE/SIMETHICONE 30ML UDC PO PRN (14:00)
[2021-05-28] MEDS ORDERED: DOCUSATE SODIUM 100MG CAPSULE PO PRN (14:00)
[2021-05-28] MEDS ORDERED: GUAIFENESIN 200MG/10ML SUGAR FREE UDC PO PRN (14:00)
[2021-05-28] MEDS ORDERED: ACETAMINOPHEN 325MG TABLET PO PRN ×2 (14:00)
[2021-05-28] MEDS ORDERED: KETOROLAC 15MG/ML VIAL IV PRN (15:00)
[2021-05-28] MEDS ORDERED: ASPIRIN 81MG TABLET PO NR (15:16)
[2021-05-28] MEDS ORDERED: FAMOTIDINE 20MG/2ML VIAL IV NR (15:17)
[2021-05-28] MEDS ORDERED: VISCOUS LIDOCAINE 2% 15 ML UDC MM NR (15:17)
[2021-05-28] MEDS ORDERED: FUROSEMIDE 40MG/4ML VIAL IVP NR (15:18)
[2021-05-28 15:37] LABS: FOLIC ACID (FOLATE) SERUM 11.9 ng/mL (>5.38)
[2021-05-28 15:55] LABS: CREATINE KINASE MB FRACTION 2.7 ng/mL (0.5-3.6)
[2021-05-28] MEDS: ENOXAPARIN 40MG/0.4ML SYR SUBCUT SCH (16:00)
[2021-05-28 16:31] LABS: *AMPHETAMINES SCREEN URINE NEGATIVE (NEGATIVE)
[2021-05-28 16:32] LABS: *BARBITURATES SCREEN URINE NEGATIVE (NEGATIVE); *BENZODIAZEPINES SCREEN URINE NEGATIVE (NEGATIVE); *COCAINE SCREEN URINE NEGATIVE (NEGATIVE); METHADONE URINE SCREEN NEGATIVE (NEGATIVE); OPIATES URINE SCREEN NEGATIVE (NEGATIVE); PHENCYCLIDINE URINE SCREEN NEGATIVE (NEGATIVE)
[2021-05-28 16:33] LABS: CANNABINOID URINE SCREEN PRESUMTIVE POSITIVE (NEGATIVE)
[2021-05-28] MEDS: ZINC SULFATE 220 MG ( 50 ) CAPSULE PO SCH (16:53)
[2021-05-28] MEDS: AMLODIPINE 10MG TABLET PO SCH (16:53)
[2021-05-28] MEDS: FAMOTIDINE 20MG TABLET PO SCH (20:27)
[2021-05-28] MEDS: ASCORBIC ACID 500 MG TABLET PO SCH (20:27)
[2021-05-28] MEDS ORDERED: ZOLPIDEM TARTRATE 5MG TABLET PO PRN (21:00)
[2021-05-28] MEDS: SPIRONOLACTONE 25MG TABLET PO SCH (21:10)
[2021-05-28] MEDS: LISINOPRIL 20MG TABLET PO SCH (21:11)
[2021-05-28 22:35] LABS: CREATINE KINASE MB FRACTION 2.4 ng/mL (0.5-3.6)
[2021-05-28] MEDS: FUROSEMIDE 40MG/4ML VIAL IVP SCH (23:35)
[2021-05-28 23:54] VITALS: BP 147/87
[2021-05-29 04:00] VITALS: BP 134/89
[2021-05-29] MEDS: FUROSEMIDE 40MG/4ML VIAL IVP SCH ×2 (06:35→17:18)
[2021-05-29] MEDS: CARVEDILOL 3.125 MG TABLET PO SCH ×2 (06:35→17:19)
[2021-05-29 07:00] LABS: BASOPHILS % 0.9 % (0.0-2.0); EOSINOPHILS % 1.3 % (0.0-5.0); HEMOGLOBIN. 16.4 g/dL (14.0-18.0); LYMPHOCYTES % 26.1 % (20.0-50.0); MEAN CORPUSCULAR HEMOGLOBIN 31.7 pg (28.0-32.0); MEAN CORPUSCULAR VOLUME 90.4 fL (80.0-94.0); MEAN PLATELET VOLUME 9.9 fl (7.4-10.4); MONOCYTES % 10.7 % (2.0-8.0); PLATELET 329 x1000/uL (130-400); RED BLOOD CELL COUNT 5.19 mill/uL (4.7-6.1); RED CELL DISTRIBUTION WIDTH 13.3 % (11.6-14.6)
[2021-05-29 08:05] LABS: CHLORIDE 106 mEq/L (98-107)
[2021-05-29 08:17] LABS: PHOSPHORUS 3.8 mg/dL (2.5-4.9)
[2021-05-29 08:30] VITALS: BP 151/103
[2021-05-29] MEDS: ZINC SULFATE 220 MG ( 50 ) CAPSULE PO SCH (08:42)
[2021-05-29] MEDS: ASPIRIN 325MG EC TABLET PO SCH (08:42)
[2021-05-29] MEDS: AMLODIPINE 10MG TABLET PO SCH (08:43)
[2021-05-29] MEDS: LISINOPRIL 20MG TABLET PO SCH ×2 (08:43→20:58)
[2021-05-29] MEDS: ASCORBIC ACID 500 MG TABLET PO SCH ×2 (08:43→20:57)
[2021-05-29] MEDS: SPIRONOLACTONE 25MG TABLET PO SCH ×2 (08:44→20:58)
[2021-05-29] MEDS: FAMOTIDINE 20MG TABLET PO SCH ×2 (08:44→20:57)
[2021-05-29 12:00] VITALS: BP 133/100
[2021-05-29] MEDS ORDERED: INFLUENZA VACCINE 05/PF 0.5 ML SYRINGE IM ONE (12:00)
[2021-05-29 16:00] VITALS: BP 128/91
[2021-05-29] MEDS: ENOXAPARIN 40MG/0.4ML SYR SUBCUT SCH (17:19)
[2021-05-29 20:00] VITALS: BP 126/89
[2021-05-30] VITALS: BP 112/80
[2021-05-30 04:00] VITALS: BP 113/88
[2021-05-30] MEDS: CARVEDILOL 3.125 MG TABLET PO SCH ×2 (06:14→18:19)
[2021-05-30] MEDS: FUROSEMIDE 40MG/4ML VIAL IVP SCH ×2 (06:14→18:19)
[2021-05-30 08:00] VITALS: BP 122/83
[2021-05-30] MEDS: ASPIRIN 325MG EC TABLET PO SCH (09:39)
[2021-05-30] MEDS: ASCORBIC ACID 500 MG TABLET PO SCH ×2 (09:39→21:20)
[2021-05-30] MEDS: FAMOTIDINE 20MG TABLET PO SCH ×2 (09:40→21:20)
[2021-05-30] MEDS: AMLODIPINE 10MG TABLET PO SCH (09:40)
[2021-05-30] MEDS: ZINC SULFATE 220 MG ( 50 ) CAPSULE PO SCH (09:41)
[2021-05-30] MEDS: SPIRONOLACTONE 25MG TABLET PO SCH ×2 (09:41→21:20)
[2021-05-30] MEDS: LISINOPRIL 20MG TABLET PO SCH ×2 (09:41→21:20)
[2021-05-30 12:00] VITALS: BP 114/80
[2021-05-30] MEDS: ENOXAPARIN 40MG/0.4ML SYR SUBCUT SCH (15:56)
[2021-05-30 16:00] VITALS: BP 117/85
[2021-05-30 20:00] VITALS: BP 110/82
[2021-05-31] VITALS: BP_SYST 116; BP_SYST 96; BP_DIAS 71; BP_DIAS 72
[2021-05-31 04:00] VITALS: BP 134/62
[2021-05-31] MEDS: CARVEDILOL 3.125 MG TABLET PO SCH ×2 (05:19→17:11)
[2021-05-31] MEDS: FUROSEMIDE 40MG/4ML VIAL IVP SCH (05:19)
[2021-05-31 06:16] LABS: BASOPHILS % 0.7 % (0.0-2.0); EOSINOPHILS % 1.1 % (0.0-5.0); HEMOGLOBIN. 16.8 g/dL (14.0-18.0); LYMPHOCYTES % 34.4 % (20.0-50.0); MEAN CORPUSCULAR HEMOGLOBIN 31.6 pg (28.0-32.0); MEAN CORPUSCULAR VOLUME 91.9 fL (80.0-94.0); MEAN PLATELET VOLUME 9.3 fl (7.4-10.4); MONOCYTES % 14.3 % (2.0-8.0); NEUTROPHILS % 49.5 % (40.0-76.0); PLATELET 388 x1000/uL (130-400); RED BLOOD CELL COUNT 5.33 mill/uL (4.7-6.1); RED CELL DISTRIBUTION WIDTH 13.1 % (11.6-14.6)
[2021-05-31 06:48] LABS: CHLORIDE 102 mEq/L (98-107)
[2021-05-31 06:55] LABS: PHOSPHORUS 4.5 mg/dL (2.5-4.9)
[2021-05-31 07:51] VITALS: BP 117/81
[2021-05-31] MEDS: ASPIRIN 325MG EC TABLET PO SCH (09:37)
[2021-05-31] MEDS: ZINC SULFATE 220 MG ( 50 ) CAPSULE PO SCH (09:37)
[2021-05-31] MEDS: LISINOPRIL 20MG TABLET PO SCH ×2 (09:37→21:00)
[2021-05-31] MEDS: FAMOTIDINE 20MG TABLET PO SCH ×2 (09:37→21:29)
[2021-05-31] MEDS: ASCORBIC ACID 500 MG TABLET PO SCH ×2 (09:37→21:30)
[2021-05-31] MEDS: AMLODIPINE 10MG TABLET PO SCH (09:37)
[2021-05-31] MEDS: SPIRONOLACTONE 25MG TABLET PO SCH ×2 (09:38→21:29)
[2021-05-31 12:00] VITALS: BP 116/84
[2021-05-31 16:00] VITALS: BP 104/71
[2021-05-31] MEDS: FUROSEMIDE 20MG/2ML VIAL IVP SCH (17:36)
[2021-05-31] MEDS: ENOXAPARIN 40MG/0.4ML SYR SUBCUT SCH (17:44)
[2021-06-01] VITALS: BP 96/71
[2021-06-01] MEDS: CARVEDILOL 3.125 MG TABLET PO SCH ×2 (06:00→17:25)
[2021-06-01] MEDS: FUROSEMIDE 20MG/2ML VIAL IVP SCH (06:10)
[2021-06-01 06:25] LABS: BASOPHILS % 0.8 % (0.0-2.0); EOSINOPHILS % 1.1 % (0.0-5.0); HEMATOCRIT. 48.5 % (42.0-52.0); HEMOGLOBIN. 16.9 g/dL (14.0-18.0); MEAN CORPUSCULAR HEMOGLOBIN 31.7 pg (28.0-32.0); MEAN CORPUSCULAR VOLUME 91.2 fL (80.0-94.0); MEAN PLATELET VOLUME 9.4 fl (7.4-10.4); MONOCYTES % 14.5 % (2.0-8.0); NEUTROPHILS % 45.6 % (40.0-76.0); PLATELET 366 x1000/uL (130-400); RED BLOOD CELL COUNT 5.32 mill/uL (4.7-6.1)
[2021-06-01 07:40] LABS: CHLORIDE 106 mEq/L (98-107)
[2021-06-01 07:51] LABS: PHOSPHORUS 5.5 mg/dL (2.5-4.9)
[2021-06-01 08:30] VITALS: BP 101/73
[2021-06-01] MEDS: ZINC SULFATE 220 MG ( 50 ) CAPSULE PO SCH (08:46)
[2021-06-01] MEDS: ASPIRIN 325MG EC TABLET PO SCH (08:46)
[2021-06-01] MEDS: AMLODIPINE 10MG TABLET PO SCH (08:46)
[2021-06-01] MEDS: ASCORBIC ACID 500 MG TABLET PO SCH ×2 (08:46→21:23)
[2021-06-01] MEDS: FAMOTIDINE 20MG TABLET PO SCH (08:48)
[2021-06-01] MEDS: ASPIRIN 81MG EC TABLET PO SCH (11:07)
[2021-06-01 12:00] VITALS: BP 108/71
[2021-06-01] MEDS ORDERED: ENOXAPARIN 30MG/0.3ML SYR SUBCUT SCH (16:00)
[2021-06-01 16:30] VITALS: BP_SYST 109; BP_SYST 111; BP_DIAS 76
[2021-06-01 20:00] VITALS: BP 114/77
[2021-06-02] VITALS: BP 115/85
[2021-06-02 04:00] VITALS: BP 113/82
[2021-06-02] MEDS: CARVEDILOL 3.125 MG TABLET PO SCH ×2 (06:12→21:07)
[2021-06-02 08:00] VITALS: BP 120/75
[2021-06-02] MEDS: FAMOTIDINE 20MG TABLET PO SCH (10:13)
[2021-06-02] MEDS: ASCORBIC ACID 500 MG TABLET PO SCH ×2 (10:14→21:07)
[2021-06-02] MEDS: ZINC SULFATE 220 MG ( 50 ) CAPSULE PO SCH (10:14)
[2021-06-02] MEDS: ASPIRIN 81MG EC TABLET PO SCH (10:14)
[2021-06-02 12:00] VITALS: BP 117/76
[2021-06-02 16:00] VITALS: BP 118/74
[2021-06-02 16:08] LABS: CHLORIDE 104 mEq/L (98-107)
[2021-06-02] MEDS: LISINOPRIL 5MG TABLET PO SCH (18:08)
[2021-06-02 20:00] VITALS: BP 112/78
[2021-06-02] MEDS ORDERED: ENOXAPARIN 40MG/0.4ML SYR SUBCUT SCH (21:00)
[2021-06-02] MEDS: FUROSEMIDE 20MG TABLET PO SCH (21:07)
[2021-06-03] VITALS: BP 112/76
[2021-06-03 04:00] VITALS: BP 125/95
[2021-06-03 05:43] LABS: CHLORIDE 106 mEq/L (98-107)
[2021-06-03 05:55] LABS: BASOPHILS % 0.9 % (0.0-2.0); EOSINOPHILS % 1.7 % (0.0-5.0); HEMATOCRIT. 47.3 % (42.0-52.0); HEMOGLOBIN. 16.3 g/dL (14.0-18.0); LYMPHOCYTES % 51.3 % (20.0-50.0); MEAN CORPUSCULAR HEMOGLOBIN 31.2 pg (28.0-32.0); MEAN CORPUSCULAR VOLUME 90.7 fL (80.0-94.0); MEAN PLATELET VOLUME 9.5 fl (7.4-10.4); MONOCYTES % 12.8 % (2.0-8.0); NEUTROPHILS % 33.3 % (40.0-76.0); PLATELET 387 x1000/uL (130-400); RED BLOOD CELL COUNT 5.22 mill/uL (4.7-6.1); RED CELL DISTRIBUTION WIDTH 13.2 % (11.6-14.6)
[2021-06-03 05:57] LABS: PHOSPHORUS 2.8 mg/dL (2.5-4.9)
[2021-06-03] MEDS: LISINOPRIL 5MG TABLET PO SCH (06:17)
[2021-06-03 08:00] VITALS: BP 113/79
[2021-06-03] MEDS ORDERED: SPIRONOLACTONE 25MG TABLET PO SCH (09:00)
[2021-06-03] MEDS: ZINC SULFATE 220 MG ( 50 ) CAPSULE PO SCH (09:26)
[2021-06-03] MEDS: FAMOTIDINE 20MG TABLET PO SCH (09:27)
[2021-06-03] MEDS: ASPIRIN 81MG EC TABLET PO SCH (09:27)
[2021-06-03] MEDS: ASCORBIC ACID 500 MG TABLET PO SCH (09:27)
[2021-06-03] MEDS: FUROSEMIDE 20MG TABLET PO SCH (09:28)
[2021-06-03] MEDS: CARVEDILOL 3.125 MG TABLET PO SCH (09:28)
[2021-06-03 12:20] VITALS: BP 109/80
== END 2021-06-03 12:50 | disposition home or self-care (01) | DRG 199 ==
LOC: ER 08:26 → 6WST 12:53 → EDBEDREQ 12:58 → EDBEDREQTM 12:58 → ENRESERV 21:27 → UNDOADMIN 05-29 00:05 → 6WST 05-29 00:05
PROVIDERS: ADMIT Internal Medicine; ATTEND Internal Medicine
DX: I16.1 Hypertensive emergency (principal); J96.91 Respiratory failure, unspecified with hypoxia; I50.23 Acute on chronic systolic (congestive) heart failure; N17.9 Acute kidney failure, unspecified; E44.1 Mild protein-calorie malnutrition; I13.0 Hypertensive heart and chronic kidney disease with heart failure and stage 1 through stage 4 chronic kidney disease, or unspecified chronic kidney disease; E87.5 Hyperkalemia; F17.210 Nicotine dependence, cigarettes, uncomplicated; E78.00 Pure hypercholesterolemia, unspecified; E78.5 Hyperlipidemia, unspecified; F10.10 Alcohol abuse, uncomplicated; N18.2 Chronic kidney disease, stage 2 (mild); Z20.822 Contact with and (suspected) exposure to COVID-19; I25.10 Atherosclerotic heart disease of native coronary artery without angina pectoris; I25.2 Old myocardial infarction; Z82.49 Family history of ischemic heart disease and other diseases of the circulatory system; Z86.73 Personal history of transient ischemic attack (TIA), and cerebral infarction without residual deficits; Z68.28 Body mass index [BMI] 28.0-28.9, adult
CPT/HCPCS: 36415; 71045; 76705; 76770; 80048; 80053; 80305; 80320; 82550; 82553; 82607; 82746; 83615; 83735; 83880; 84100; 84145; 84443; 84484; 85025; 85379; 87426; 90686; 93005; 93306; 93970; 99291; J1650; J1940; J3490; G0480

== ENCOUNTER 2021-06-24 14:29 | Emergency (ER) | payer MEDICAID ==
[~2021-06-24] VITALS: Ht 167.6 cm; Wt 82.0 kg
[2021-06-24] MEDS ORDERED: FAMOTIDINE 20MG/2ML VIAL IV STA (14:48)
[2021-06-24] MEDS ORDERED: ONDANSETRON HCL 4MG/2ML INJ IV STA (14:48)
[2021-06-24] MEDS ORDERED: SODIUM CHLORIDE 0.9% 1,000 ML IV ONE (15:00)
[2021-06-24 15:33] LABS: BASOPHILS % 0.5 % (0.0-2.0); EOSINOPHILS % 0.2 % (0.0-5.0); HEMATOCRIT. 41.9 % (42.0-52.0); HEMOGLOBIN. 13.7 g/dL (14.0-18.0); LYMPHOCYTES % 13.7 % (20.0-50.0); MEAN CORPUSCULAR VOLUME 91.6 fL (80.0-94.0); MEAN PLATELET VOLUME 8.6 fl (7.4-10.4); MONOCYTES % 5.6 % (2.0-8.0); PLATELET 293 x1000/uL (130-400); RED BLOOD CELL COUNT 4.57 mill/uL (4.7-6.1); RED CELL DISTRIBUTION WIDTH 13.2 % (11.6-14.6)
[2021-06-24 15:38] LABS: CHLORIDE 110 mEq/L (98-107)
[2021-06-24 16:12] LABS: CLARITY URINE CLEAR (CLEAR); COLOR URINE YELLOW (YELLOW); KETONES URINE TRACE (NEGATIVE); LEUKOCYTE ESTERASE URINE NEGATIVE (NEGATIVE); NITRITE URINE NEGATIVE (NEGATIVE); OCCULT BLOOD URINE 3+ (NEGATIVE); PROTEIN URINE TRACE (NEGATIVE); SPECIFIC GRAVITY URINE 1.019 (1.005-1.030)
[2021-06-24 16:30] VITALS: BP 170/117
[2021-06-24] MEDS ORDERED: KETOROLAC 15MG/ML VIAL IV ONE (16:30)
[2021-06-24] MEDS ORDERED: IBUP-2028 MT (19:38)
[2021-06-24] MEDS ORDERED: TAMS-11 MT (19:38)
== END 2021-06-24 20:01 | disposition home or self-care (01) ==
LOC: ER 14:29
DX: N20.0 Calculus of kidney (principal); I10 Essential (primary) hypertension; E78.00 Pure hypercholesterolemia, unspecified; I25.10 Atherosclerotic heart disease of native coronary artery without angina pectoris; Z79.899 Other long term (current) drug therapy; I25.2 Old myocardial infarction
CPT/HCPCS: 36415; 74176; 80053; 81003; 83690; 85025; 96374; 96375; 99284; J1885; J2405; J3490; Z7610